=== PATIENT | male | born 1970 | race Caucasian/White ===

== ENCOUNTER 2020-11-02 07:38 | Emergency (ER) | payer MEDICAID ==
[~2020-11-02] VITALS: Ht 172.7 cm; Wt 81.6 kg
--- NOTE | 2020-11-02 07:39 | NUR ---
TO ER BED 4, C/O OF BIB SELF C/O R SIDED ABDOMINAL PAIN STARTED 5AM THIS MORNING. SALINE LOCK ESTABLISHED, BLOOD DRAWN AND PICKED UP BY LAB
[2020-11-02] MEDS ORDERED: IV NS 0.9% 1,000 ML BAG IV ONE (08:00)
[2020-11-02] MEDS ORDERED: ONDANSETRON HCL/PF 4 MG/2 ML VIAL IVP ONE (08:00)
[2020-11-02] MEDS ORDERED: ONDANSETRON HCL/PF 4 MG/2 ML VIAL ONE (08:02)
[2020-11-02] MEDS ORDERED: MORPHINE SULFATE INJ 4 MG/ML DISP.SYRIN ONE (08:09)
[2020-11-02 08:12] LABS: BASOPHILS # (AUTO) 0.1 K/uL (0.0-0.2); BASOPHILS % (AUTO) 0.9 % (0.0-2.0); EOSINOPHILS % (AUTO) 1.4 % (0.0-6.0); HEMATOCRIT 46 % (39-51); HEMOGLOBIN 15.3 g/dL (13.5-17.5); LYMPHOCYTES # (AUTO) 2.1 K/uL (0.8-4.8); LYMPHOCYTES % (AUTO) 31.3 % (20.0-44.0); MEAN CORPUSCULAR HGB CONC 34 g/dl (31.0-36.0); MEAN CORPUSCULAR VOLUME 88 fL (80-96); MONOCYTES # (AUTO) 0.5 K/uL (0.1-1.30); MONOCYTES % (AUTO) 6.8 % (2.0-12.0); NEUTROPHILS % (AUTO) 59.6 % (43.0-81.0); PLATELET COUNT (AUTO) 289 K/uL (150-450); RED BLOOD CELL COUNT(AUTO) 5.17 MIL/uL (4.5-6.0); WHITE BLOOD COUNT (AUTO) 6.7 K/uL (4.3-11.0)
--- NOTE | 2020-11-02 08:20 | NUR ---
TAKEN TO CT
[2020-11-02 08:24] LABS: CALCIUM, SERUM 8.5 mg/dL (8.5-10.1); CARBON DIOXIDE 26 mmol/L (21-32); CHLORIDE 106 mmol/L (98-107); CREATININE 1.1 mg/dL (0.6-1.3); GLUCOSE 151 mg/dL (74-106); POTASSIUM 4.2 mmol/L (3.5-5.1); SODIUM SERUM 139 mmol/L (136-145); UREA NITROGEN, BLOOD 12 mg/dL (7-18)
[2020-11-02 08:28] LABS: ALANINE AMINOTRANSFERASE 31 U/L (12-78); ALBUMIN 3.9 g/dL (3.4-5.0); ALKALINE PHOSPHATASE 50 U/L (46-116); ASPARTATE AMINOTRANSFERASE 15 U/L (15-37); BILIRUBIN,DIRECT 0.1 mg/dL (0.0-0.2); BILIRUBIN,TOTAL 0.3 mg/dL (0.2-1.0); LIPASE 145 U/L (73-393); TOTAL PROTEIN, SERUM 7.3 g/dL (6.4-8.2)
[2020-11-02] MEDS ORDERED: MORPHINE SULFATE INJ 2 MG/ML DISP.SYRIN IV ONE (08:30)
[2020-11-02] MEDS ORDERED: ONDA4TAB5 PO (08:51)
[2020-11-02] MEDS ORDERED: HYDR-3980 PO (08:51)
[2020-11-02] MEDS ORDERED: IBUP-1955 PO (08:51)
[2020-11-02] MEDS ORDERED: KETOROLAC TROMETHAMINE INJ 30 MG/ML VIAL ONE (08:56)
[2020-11-02] MEDS ORDERED: KETOROLAC TROMETHAMINE INJ 30 MG/ML VIAL IV ONE (09:00)
[2020-11-02 09:17] VITALS: BP 130/90
== END 2020-11-02 09:17 | disposition home or self-care (01) ==
LOC: ER 07:46
DX: N20.1 Calculus of ureter (principal); N23 Unspecified renal colic; F17.200 Nicotine dependence, unspecified, uncomplicated
CPT/HCPCS: 36415; 74176; 80048; 80076; 83690; 84484; 85025; 96361; 96374; 96375; 99284; J1885; J2270; J2405; J7030

== ENCOUNTER 2023-11-22 10:36 | Emergency (ER) | payer MEDICAID, OTHER ==
[~2023-11-22] VITALS: Ht 170.2 cm; Wt 80.7 kg
[~2023-11-22 10:36] MED LIST: HYDR-3980 PO; IBUP-1955 PO; ONDA4TAB5 PO
[2023-11-22] MEDS ORDERED: IBUP-1957 PO (11:24)
[2023-11-22 11:30] VITALS: BP 135/77; TEMP 98.2; O2SAT 97
== END 2023-11-22 11:31 | disposition home or self-care (01) ==
LOC: ER 10:39
DX: M54.50 Low back pain, unspecified (principal); F17.210 Nicotine dependence, cigarettes, uncomplicated
CPT/HCPCS: 72110-TC; 72202-TC

== ENCOUNTER 2024-07-05 13:19 | Emergency (ER) | payer OTHER ==
[~2024-07-05] VITALS: Ht 175.3 cm; Wt 81.6 kg
[~2024-07-05 13:19] MED LIST changes: +IBUP-1957 PO
[2024-07-05 13:22] VITALS: BP 111/80; TEMP 98.4
[2024-07-05 14:54] VITALS: O2SAT 99
== END 2024-07-05 14:55 | disposition home or self-care (01) ==
LOC: ER 13:27
DX: R05.9 Cough, unspecified (principal); R09.81 Nasal congestion; R51.9 Headache, unspecified; F17.200 Nicotine dependence, unspecified, uncomplicated; Z79.1 Long term (current) use of non-steroidal anti-inflammatories (NSAID); Z79.899 Other long term (current) drug therapy
CPT/HCPCS: 71045-TC